=== PATIENT | male | born 1995 | race Caucasian/White ===

== ENCOUNTER 2020-03-18 14:06 | Emergency (ER) | payer OTHER ==
[~2020-03-18] VITALS: Ht 177.8 cm; Wt 63.5 kg
[~2020-03-18 14:06] MED LIST: COLD & FLU SEV1 EACH PO; IBUPROFEN800 MG PO
[2020-03-18] MEDS ORDERED: TYLENOL325 M1 PO (14:19)
== END 2020-03-18 15:23 | disposition home or self-care (01) ==
LOC: ED 14:06
DX: R10.11 Right upper quadrant pain (principal); F17.200 Nicotine dependence, unspecified, uncomplicated
CPT/HCPCS: 80053; 83690; 85025; 99284